=== PATIENT | female | born 1930 | race Caucasian/White ===

== ENCOUNTER 2018-05-28 09:01 | Inpatient (IN) ==
[2018-05-28 09:49] LABS: BASO# 0.02 X1000 (0.0-0.2); BASO% 0.1 % (0.0-0.8); EOS# 0.01 X1000 (0.0-0.7); EOS% 0.1 % (0.0-10.0); HEMATOCRIT 39.7 % (37.0-47.0); HEMOGLOBIN 12.7 g/dL (12.0-16.0); IMM GRAN# 0.02 X1000 (0.0-0.04); IMM GRAN% 0.1 % (0.0-0.5); LYMPH# 6.12 X1000 (1.2-3.4); LYMPH% 41.7 % (20.5-51.1); MCH 30.7 PG (27-31); MCV 95.9 FL (81-99); MONO# 1.05 X1000 (0.11-0.59); MONO% 7.2 % (1.7-9.3); NEUT# 7.45 X1000 (1.4-6.5); NEUT% 50.8 % (42.2-75.2); PLT 303 X1000 (130-400); RBC 4.14 XMIL (4.2-5.4); RDW 14.7 % (11.5-14.5); WBC 14.67 X1000 (4.8-10.8)
[2018-05-28 09:53] LABS: ALBUMIN 3.4 g/dL (3.5-5.0); CALCIUM 9.7 mg/dL (8.8-10.2); CREATININE 0.9 mg/dL (0.5-0.9); INR 0.99; POTASSIUM 4.1 mmol/L (3.5-5.1); PROTIME 13.9 Seconds (11.0-16.0); TOTAL BILIRUBIN 0.52 mg/dL (0.20-1.00); TOTAL PROTEIN 6.8 g/dL (6.3-8.3)
[2018-05-28 09:54] LABS: PTT 34.3 Seconds (22.3-41.8)
--- NOTE | 2018-05-28 09:56 | PROVIDER DOCUMENTATION ---
HPI-General Adult - General Chief Complaint: Possible Sepsis-D Stated Complaint: Fever Time Seen by Provider: 05/28/18 09:19 Source: patient Allergies/Adverse Reactions: Patient Allergies Allergy/AdvReac Type Severity Reaction Status Date / Time No Known Allergies Allergy Verified 05/28/18 09:40 Home Medications: Home Medication List Medication Instructions Recorded Confirmed Last Taken Type Atenolol 100 mg PO DAILY 04/10/13 12/04/14 12/04/14 History Insuln Asp Prt/Aspart [Novolog Mix 12 units SQ QPM 04/10/13 12/04/14 12/03/14 History 70/30] Insuln Asp Prt/Aspart [Novolog Mix 20 units SQ QAM 04/10/13 12/04/14 12/04/14 History 70/30] Omeprazole [Prilosec] 20 mg PO DAILY@0700 04/10/13 12/04/14 12/04/14 History Simvastatin [Zocor] 20 mg PO QHS 04/10/13 12/04/14 12/03/14 History Clopidogrel [Plavix] 75 mg PO DAILY 12/04/14 12/04/14 12/04/14 History Losartan/Hydrochlorothiazide 1 each PO DAILY 12/04/14 12/04/14 12/04/14 History [Losartan-Hctz 50-12.5 mg Tab] Sulindac 200 mg PO DAILY 12/04/14 12/04/14 12/04/14 History Albuterol Sulfate Inhaler 1 puff INH Q6H PRN PRN #1 inhaler 12/06/14 Unknown Rx [Ventolin Hfa] CefDINIR [Omnicef] 300 mg PO BID #14 capsule 12/06/14 Unknown Rx Fluticasone/Salmet 250/50 INH 1 puff INH BID #1 inhaler 12/06/14 Unknown Rx [Advair 250/50 Diskus] Hydrocodone/APAP 7.5 mg/325 mg 0.5 each PO Q4H PRN PRN #14 tablet 12/06/14 Unknown Rx [Brutus-7.5] Polyethylene Glycol 3350 [Miralax] 17 gm PO DAILY #0 powder, packet 12/06/14 Unknown Rx - History of Present Illness -Gen Adult Nature of Presenting Problems: [facility] for [facility]. patient recently treated for UTI and continues on oral antibiotic.Patient notes that she has become weakner over the past few days to the point of dropping objects like a coffee cup. She also notes 1 episode of N//V today. Location of Pain/Injury: reports: none Quality of Pain: reports: none Severity: reports: moderate Onset/Duration: reports: 3 days ago Timing: reports: still present Context/Activities at Onset: reports: none Modifying Factors: improves with: nothing Associated Symptoms: reports: fever/chills, nausea, vomiting, weakness Similar Symptoms Previously?: Yes Recently seen or treated by another doctor?: Yes - Diabetes Related Context Context: reports: high blood sugar - Sickle Cell Pain Related Context Sickle Cell Pain Location: reports: none Review of Systems - Adult - REVIEW OF SYSTEMS - ADULT Constitutional: reports: no symptoms reported Eyes: reports: no symptoms reported Ears, Nose, Mouth & Throat: reports: no symptoms reported Cardiovascular: reports: no symptoms reported Respiratory: reports: no symptoms reported Gastrointestinal: reports: no symptoms reported Genitourinary: reports: no symptoms reported Musculoskeletal: reports: no symptoms reported Integumentary: reports: no symptoms reported Neurological: reports: no symptoms reported Psychiatric: reports: no symptoms reported Endocrine: reports: no symptoms reported Hematologic/Lymphatic: reports: no symptoms reported Allergic/Immunologic: reports: no symptoms reported All Other Systems: Reviewed and Negative Past History - Adult - PAST MEDICAL HISTORY-ADULT Review of Records: reports: Old Records Reviewed, Nursing Assessment Review, Medications Reviewed, Social history reviewed & non-contributory. Major Childhood Illnesses: reports: denies history Cardiovascular: reports: HTN, hyperlipidemia Respiratory: reports: denies history Gastrointestinal: reports: GERD Obstetrical/Gynecological: reports: denies history Genitourinary: reports: denies history Musculoskeletal: reports: denies history Neurological: reports: denies history Endocrine/Immune: reports: denies history, Diabetes Other Conditions: reports: denies history - PRIOR SURGERIES/PROCEDURES Surgical/Procedure History: reports: reviewed, not pertinent - IMMUNIZATION STATUS Childhood Immunizations: See Nurse Assessment Flu Vaccine: See Nurse Assessment - FAMILY HISTORY Family History: reviewed, not pertinent Physical Exam-General - PHYSICAL EXAM-ADULT Initial Vital Signs Reviewed: Yes - CONSTITUTIONAL General Appearance: appears well - EYES Eyes: PERRL/EOMI - HEAD, EARS, NOSE, MOUTH & THROAT HENMT: normocephalic/atraumatic Progress - PLAN OF CARE/RESULTS Progress/Plan/Lab Results: Vital Signs - 8 hr 05/28/18 09:05 Temperature 99.5 F Pulse Rate 97 H Respiratory Rate 22 Blood Pressure 162/74 O2 Sat by Pulse Oximetry 96 Laboratory Results - last 24 hr 05/28/18 09:29 POC Glucose 212 H Orders Category Date Time Status Cardiac Monitoring DIRECTED Care 05/28/18 09:14 Active IV Insertion ORDERED Care 05/28/18 09:14 Active Notify MD of + Sepsis Screen NOW Care 05/28/18 09:14 Active Notify Physician As Ordered Care 05/28/18 09:14 Active CHEST-1 VIEW [RAD] Stat Exams 05/28/18 09:14 Taken BLOOD CULTURE [BLDCUL] Stat Lab 05/28/18 09:31 Received CBC WITH DIFF [HEME] Stat Lab 05/28/18 09:28 Results CK PROFILE [SP CHEM] Stat Lab 05/28/18 09:28 Received COMPREHENSIVE METABOLIC PANEL [CHEM] Stat Lab 05/28/18 09:28 Received LACTATE, PLASMA [CHEM] Q3H Lab 05/28/18 09:28 Received LACTATE, PLASMA [CHEM] Q3H Lab 05/28/18 12:15 Uncollected LACTATE, PLASMA [CHEM] Q3H Lab 05/28/18 15:15 Uncollected PROTIME WITH INR [COAG] Stat Lab 05/28/18 09:28 Received PTT [COAG] Stat Lab 05/28/18 09:28 Received TROPONIN T Stat Lab 05/28/18 09:28 Received URINALYSIS W/POSS RFLX CULT [URINALYSIS] Stat Lab 05/28/18 09:14 Uncollected Oxygen Device Stat Oth 05/28/18 09:14 Active Result Diagrams: 05/28/18 09:28 05/28/18 09:28 - REASSESSMENT Reassessment #1 Time Reassessed: 13:23 Status: unchanged - CONSULTS/PCP/HOSPITALIST Notification #1 *Consult/PCP/Hospitalist*: Dr. Brown Time Discussed: 13:23 Consult Disposition: Admit Departure - Departure Date of Disposition Decision: 05/28/18 Time of Disposition Decision: 13:23 DIAGNOSIS: UTI (urinary tract infection) Disposition: ADMITTED INPATIENT 09 Certified Medical Emergency: Emergent Condition: Stable Referrals and Follow-Ups: John Smith MD [Primary Care Provider] - - Critical Care Note This patient required my direct & personal management of CC.: No Attestation - Physician/ JULIEN Attestation Patient care was provided by Advanced Practice Provider:: No The physician spent face to face time with patient:: Yes Advanced Practice Provider documentation review:: Supervising physician onsite and consulted in the evaluation and care of this patient. The physician did have a face to face encounter with the patient.
[2018-05-28 10:01] LABS: URINE SOURCE CATH
--- NOTE | 2018-05-28 10:06 | Diag Imaging Result Doc PS360 ---
EXAM: CHEST-1 VIEW INDICATION: SEPSIS TECHNIQUE: One view COMPARISON: 12/04/2014 FINDINGS: Inspiration is suboptimal. This is similar to the previous study. There is central vascular crowding related to the low lung volumes. No well-defined consolidation is identified. There is no discrete pleural fluid collection or pneumothorax. The cardiomediastinal silhouette and central vasculature are grossly unremarkable. IMPRESSION: Low lung volumes but no definite acute pathology, otherwise. Electronically signed by Marco Emery 05/28/2018 10:03 AM
[2018-05-28 10:09] LABS: BILIRUBIN URINE NEGATIVE (NEGATIVE); BLOOD URINE NEGATIVE (NEGATIVE); COLOR YELLOW; GLUCOSE URINE NEGATIVE (NEGATIVE); KETONE URINE NEGATIVE (NEGATIVE); LEUKOCYTES URINE TRACE (NEGATIVE); NITRITE URINE NEGATIVE (NEGATIVE); PROTEIN URINE 30 mg/dL (NEGATIVE); SP GRAVITY URINE 1.033; TURBIDITY URINE CLEAR (CLEAR); UROBILINOGEN URINE 2 mg/dL (NORMAL)
[2018-05-28 10:11] LABS: UR EPITHELIAL CELLS <10 /HPF (<10); URINE BACTERIA NEGATIVE /HPF; URINE RBC <10 /HPF (<10); URINE WBC <10 /HPF (<10)
[2018-05-28] MEDS ORDERED: LEVAQUIN 750 MG/D5W 750 MG/150 ML IVPB IV ONE (13:24)
[2018-05-28] MEDS ORDERED: TYLENOL PO PRN (13:45)
[2018-05-28] MEDS ORDERED: ZOFRAN IV PRN (13:45)
--- NOTE | 2018-05-28 14:14 | HISTORY AND PHYSICAL ---
HISTORY: Ms. Henriquez is at [facility] followed by Dr. Mendoza. She apparently has had some dysuria and burning when she passes her water. They have been treating her with p.o. antibiotic for the last couple of days, but this morning was very weak. Apparently, she dropped her coffee. They were concerned about it so they sent her over here. It looks like the only thing we discovered was acute cystitis so we will obtain cultures, and put her on some IV Levaquin. She is an 84-year-old with longstanding history of type 2 diabetes mellitus, hypertension, hyperlipidemia, and gastroesophageal reflux disease. Family follows her a grandson. She was getting Meals on Wheels. At this time though, I think she is in [facility]. Her son was at the bedside. PAST SURGICAL HISTORY: She has had some eye surgery in the past. PAST MEDICAL HISTORY: 1. Diabetes mellitus type 2. 2. Hypertension. 3. Hyperlipidemia. 4. Gastroesophageal reflux disease. 5. Coronary artery disease. ALLERGIES: No known drug allergies. MEDICATIONS: It looks like her medications include: 1. Atenolol 100 mg a day. 2. 70/30 NovoLog 20 units at breakfast and 12 units of supper. 3. Prilosec 20 mg a day. 4. Zocor 20 mg at bedtime. 5. Bumex 1 mg daily. 6. Coumadin 3 mg at bedtime. 7. Hyzaar 50/12.5 daily. 8. Plavix 75 mg a day. 9. Sulindac 200 mg a day. 10. Ativan 0.5 mg at bedtime. 11. Klor-Con 10 mEq daily. REVIEW OF SYSTEMS: She says she was breaking out in a sweat and just very weak, but she did not know of any recorded elevated temperature. She does not report any chest pain or palpitations.HEENT: No change in visual or hearing acuity reported. Neck: No neck pain or stiffness. No cervical adenopathy. Respiratory: No increased work of breathing or dyspnea. No cough. No pleuritic pain. Cardiovascular: Regular rhythm and rate. GI/: No change in her bowels. She does have burning with urination. No blood in the urine reported. Endocrinologic/Hematologic: No significant history that we know of. Musculoskeletal/Neurologic: Just generalized weakness. No focal changes. PHYSICAL EXAMINATION: VITAL SIGNS: Temperature 99.5 degrees, pulse 88, respirations 17, and blood pressure 145/65. Weight 160 pounds, height 5 feet 2 inches, and O2 saturation 92%. HEENT: Pupils are equal and round. LUNGS: Clear in all lung kessler. CARDIOVASCULAR: Regular rhythm and rate without murmur or S3. ABDOMEN: Soft. SKIN: Warm and dry. LABORATORY: White count 01899, hematocrit 39 and platelet count 303,000. Sodium 138, potassium 4.1, chloride 101, BUN 22, and creatinine 0.9. AST 13, ALT 8, alkaline phosphatase 114. Troponin was less than 0.01. ProTime is 13.9, PTT is 34. Urinalysis was really unremarkable. Of course, she has been on p.o. antibiotics but white blood cells less than 10. Red blood cells less than 10. Her chest x-ray with low lung volumes, but no definite acute pathology. ASSESSMENT AND PLAN: 1. Suspect acute cystitis and possible early pyelonephritis. We will get an ultrasound tomorrow of her kidneys and collection system. I will put her on IV Levaquin. 2. Diabetes mellitus type 2. Follow pattern sugars. Continue her home insulin, put on diabetic diet. 3. Leukocytosis. Suspect this is related to urinary tract infection in which case she may have some pyelonephritis, so we will check her ultrasound of her collection system and make sure there is no perinephric abscess or pyelonephritis. She does not complain of costovertebral angle pain. 4. Hypercholesterolemia. 5. History of gastroesophageal reflux disease. 6. I am suspicious that she has had a history of coronary artery disease, and will see if I can find anything on previous H P. cc: Ray Brown MD
[2018-05-28] MEDS: NS 1,000 ML IV SCH (14:19)
[2018-05-28] MEDS: HUMULIN R SUBQ SCH ×2 (17:32→22:11)
[2018-05-28] MEDS: TEARISOL OPH SOLUTION OPH SCH ×2 (17:36→21:11)
[2018-05-28] MEDS: ADVAIR 250/50 DISKUS INH SCH (19:27)
[2018-05-28] MEDS: HUMALOG MIX 75/25 SUBQ SCH (21:11)
[2018-05-28] MEDS: ZANTAC PO SCH (21:11)
[2018-05-28] MEDS: NORCO-7.5 PO SCH (21:11)
[2018-05-28] MEDS ORDERED: TESSALON PO ONE (23:11)
[2018-05-29] MEDS: NS 1,000 ML IV SCH ×2 (03:30→15:53)
[2018-05-29] MEDS: HUMULIN R SUBQ SCH ×4 (05:13→21:56)
[2018-05-29 07:41] LABS: BASO# 0.03 X1000 (0.0-0.2); BASO% 0.4 % (0.0-0.8); EOS# 0.14 X1000 (0.0-0.7); EOS% 1.7 % (0.0-10.0); HEMATOCRIT 39.2 % (37.0-47.0); HEMOGLOBIN 12.2 g/dL (12.0-16.0); IMM GRAN# 0.02 X1000 (0.0-0.04); IMM GRAN% 0.2 % (0.0-0.5); LYMPH# 3.65 X1000 (1.2-3.4); LYMPH% 43.4 % (20.5-51.1); MCH 30.8 PG (27-31); MCHC 31.1 g/dL (33-37); MONO# 0.74 X1000 (0.11-0.59); MONO% 8.8 % (1.7-9.3); MPV 10.2 FL (7.4-10.4); NEUT# 3.83 X1000 (1.4-6.5); NEUT% 45.5 % (42.2-75.2); PLT 283 X1000 (130-400); RBC 3.96 XMIL (4.2-5.4); RDW 14.9 % (11.5-14.5); WBC 8.41 X1000 (4.8-10.8)
[2018-05-29] MEDS: ADVAIR 250/50 DISKUS INH SCH ×2 (07:45→20:11)
[2018-05-29 07:48] LABS: INR 1.07; PROTIME 14.8 Seconds (11.0-16.0)
[2018-05-29 07:49] LABS: PTT 34.2 Seconds (22.3-41.8)
[2018-05-29 08:02] LABS: AGAP 8; ALB/GLOB RATIO 0.8; ALBUMIN 3.1 g/dL (3.5-5.0); ALKALINE PHOSPHATASE 100 U/L (32-104); BUN 15 mg/dL (8-22); CHLORIDE 105 mmol/L (98-107); COSMO 286; CREATININE 0.8 mg/dL (0.5-0.9); ESTIMATED GFR > 60; GLUCOSE 105 mg/dL (70-104); GOT 16 U/L (10-30); GPT 7 U/L (10-36); SODIUM 143 mmol/L (136-145); TCO2 30 mmol/L (25-35); TOTAL BILIRUBIN 0.47 mg/dL (0.20-1.00); TOTAL PROTEIN 6.9 g/dL (6.3-8.3)
[2018-05-29 08:03] LABS: HEMOGLOBIN A1C 6.9 % (4.8-6.0)
[2018-05-29 08:17] LABS: FREE T4 1.34 ng/dL (0.93-1.70); TSH 0.21 uIUmL (0.27-4.20)
--- NOTE | 2018-05-29 08:38 | Diag Imaging Result Doc PS360 ---
EXAM: US RENAL 2 (RETROPER) COMPLETE 05/29/2018 HISTORY: uti TECHNIQUE: Renal ultrasound COMMENT: The urinary bladder is not distended. The right kidney is 10.2 x 5.2 x 4.5 cm the left is 11.7 x 5.1 x 4.7 cm. There is no evidence of hydronephrosis. There is an apparent cyst measuring 1.4 cm in the mid right kidney. There are no previous ultrasound examinations. IMPRESSION: No evidence of acute disease. Electronically signed by Jagdish Tolentino 05/29/2018 8:36 AM
[2018-05-29] MEDS ORDERED: INSULIN PEN NEEDLES ONE (09:11)
[2018-05-29] MEDS: MIRALAX PO SCH (09:22)
[2018-05-29] MEDS: ZANTAC PO SCH ×2 (09:22→21:56)
[2018-05-29] MEDS: THERA M PLUS PO SCH (09:22)
[2018-05-29] MEDS: HUMALOG MIX 75/25 SUBQ SCH ×2 (09:22→21:57)
[2018-05-29] MEDS: PLAVIX PO SCH (09:22)
[2018-05-29] MEDS: JANUVIA PO SCH (09:22)
[2018-05-29] MEDS: TOPROL XL PO SCH (09:22)
[2018-05-29] MEDS: TEARISOL OPH SOLUTION OPH SCH ×4 (09:23→21:57)
[2018-05-29] MEDS ORDERED: LEVAQUIN 750 MG/D5W 750 MG/150 ML IVPB IV SCH (15:00)
[2018-05-29] MEDS ORDERED: MILK OF MAGNESIA PO PRN (16:44)
--- NOTE | 2018-05-29 17:05 | PROGRESS NOTE ---
DATE: 05/29/2018 SUBJECTIVE: Ms. Henriquez is actually feeling much better, comfortable. She has not had any fever, no chills. She does still feel weak, but much improved. OBJECTIVE: Vital signs: Temperature 98.2 degrees, pulse 86, respirations 20, blood pressure 150/63. HEENT: Pupils are equal and round. Lungs: Clear in all lung kessler. Cardiovascular: Regular rhythm and rate without murmur or S3. Abdomen: Soft. Skin: Warm and dry. DIAGNOSTIC STUDIES: She had a renal ultrasound with no evidence of acute disease and no evidence of hydronephrosis. ASSESSMENT AND PLAN: 1. Acute cystitis and possible pyelonephritis. Doing much better. Presented with an elevated white count and failure of p.o. antibiotics in the correction. 2. Volume depletion. This is improved. Her creatinine is good at 0.8. 3. History of gastroesophageal reflux. 4. History of hypercholesterolemia. We need to try and get her up, and she does have Physical Therapy involved. Continue her levofloxacin 750 mg IV q.24 h. There is no growth in the urine. Blood cultures x2 were negative so hopefully we can improve, and maybe she can get back to the correction on Tuesday. cc: Ray Brown MD
[2018-05-29] MEDS: TESSALON PO PRN ×2 (19:32→23:39)
[2018-05-29] MEDS: NORCO-7.5 PO SCH (21:56)
[2018-05-30] MEDS: HUMULIN R SUBQ SCH ×4 (05:59→20:48)
[2018-05-30] MEDS: NS 1,000 ML IV SCH (05:59)
[2018-05-30 07:29] LABS: MPV 10.6 FL (7.4-10.4); RDW 14.9 % (11.5-14.5)
[2018-05-30 07:40] LABS: HEMATOCRIT 38.9 % (37.0-47.0); HEMOGLOBIN 12.7 g/dL (12.0-16.0); MCH 31.9 PG (27-31); MCHC 32.6 g/dL (33-37); MCV 97.7 FL (81-99); RBC 3.98 XMIL (4.2-5.4); WBC 9.21 X1000 (4.8-10.8)
[2018-05-30 08:42] LABS: AGAP 9; BUN 12 mg/dL (8-22); CHLORIDE 105 mmol/L (98-107); COSMO 279; CREATININE 0.6 mg/dL (0.5-0.9); ESTIMATED GFR > 60; GLUCOSE 58 mg/dL (70-104); SODIUM 141 mmol/L (136-145); TCO2 27 mmol/L (25-35)
[2018-05-30] MEDS: ADVAIR 250/50 DISKUS INH SCH ×2 (09:40→22:40)
[2018-05-30] MEDS: THERA M PLUS PO SCH (11:52)
[2018-05-30] MEDS: JANUVIA PO SCH (11:52)
[2018-05-30] MEDS: PLAVIX PO SCH (11:52)
[2018-05-30] MEDS: TOPROL XL PO SCH (11:52)
[2018-05-30] MEDS: TEARISOL OPH SOLUTION OPH SCH ×4 (11:53→20:46)
[2018-05-30] MEDS: ZANTAC PO SCH ×2 (11:53→20:47)
[2018-05-30] MEDS: MIRALAX PO SCH ×2 (11:53→20:47)
[2018-05-30] MEDS: HUMALOG MIX 75/25 SUBQ SCH ×2 (11:53→20:46)
--- NOTE | 2018-05-30 14:14 | Diag Imaging Result Doc PS360 ---
CT THORAX W/O CONTRAST - 05/30/2018 INDICATION: pneumonia COMPARISON: Chest x-ray 05/28/2018. CT 04/09/2013. FINDINGS: There is a stable severely abnormal thyroid gland with enlargement of the right lobe. This measures 4 x 3.1 cm in AP and lateral dimensions. This is very similar to the CT from 2013. Stable abnormal right clavicle compatible with Paget's disease. There is significant cardiomegaly. There is vascular disease of the great vessels but otherwise these are grossly normal. There is a left adrenal gland nodule measuring 2.1 cm. There is probably also a tiny right adrenal gland nodule. There is probably a small calcified gallstone in the gallbladder neck. No gallbladder distention or inflammation. There is some faint patchy atelectasis in the lung bases bilaterally. No substantial infiltrates. IMPRESSION: 1. Patchy atelectasis in the lung bases but no pneumonia. 2. Abnormally enlarged right lobe of the thyroid gland stable from old exams. 3. Paget's disease of the right clavicle with no evidence of complication. This exam was performed using automated exposure control, adjustment of mA or kV according to patient size, and/or use of iterative reconstruction technique Electronically signed by Raman Corea 05/30/2018 2:12 PM
[2018-05-30] MEDS: MUCOMYST 20% INH SCH ×2 (15:10→22:40)
[2018-05-30] MEDS: ALBUTEROL NEB INH SCH ×3 (15:10→22:40)
[2018-05-30] MEDS: AUGMENTIN PO SCH (20:45)
[2018-05-30] MEDS: NORCO-7.5 PO SCH (20:46)
[2018-05-30] MEDS: LACTULOSE PO SCH (20:47)
[2018-05-30] MEDS: CULTURELLE PO SCH (20:47)
[2018-05-31] MEDS: ALBUTEROL NEB INH SCH ×4 (03:05→21:53)
--- NOTE | 2018-05-31 03:59 | PROGRESS NOTE ---
DATE: 05/30/2018 SUBJECTIVE: The patient states that she has been coughing a lot, and she has not had a bowel movement in several days. OBJECTIVE: Vital Signs: Temperature 98.3 degrees, blood pressure 174/64, heart rate 93, respirations 20, O2 saturation 99% on 2 L nasal cannula. Output: Urine output 1.1. General: This is a chronically ill-appearing elderly female, lying in bed, in no acute distress. Heart: S1, S2 normal. Lungs: Coarse breath sounds bilaterally with rhonchi. Abdomen: Positive bowel sounds. Soft, nontender, nondistended. Extremities: No edema, no cyanosis. Neurologic: The patient is alert and oriented. DIAGNOSTIC STUDIES: White blood cell count 9.2, hemoglobin 12, hematocrit 38, platelets 173,000. Sodium 141, potassium 4, chloride 105, CO2 of 27, BUN 12, creatinine 0.6, glucose 182. CT of the chest reveals atelectasis. An enlarged right lobe of the thyroid gland, stable. ASSESSMENT AND PLAN: 1. Acute bronchitis. We will continue with antibiotics and add bronchodilator therapy. 2. Urinary tract infection. The urine culture showed no growth. We will continue the course of antibiotic therapy. 3. Constipation. We will start the patient on scheduled laxative therapy. 4. Diabetes mellitus. Continue on Humalog mix plus sliding scale insulin. 5. Deep vein thrombosis prophylaxis. We will start the patient on Lovenox. 6. We will consult Physical Therapy. cc: Phoebe Reaves MD
[2018-05-31] MEDS: HUMULIN R SUBQ SCH ×4 (06:21→21:19)
[2018-05-31 07:10] LABS: HEMATOCRIT 38.6 % (37.0-47.0); HEMOGLOBIN 12.6 g/dL (12.0-16.0); MCH 31.3 PG (27-31); MCHC 32.6 g/dL (33-37); MPV 9.9 FL (7.4-10.4); RBC 4.02 XMIL (4.2-5.4); RDW 14.7 % (11.5-14.5); WBC 6.1 X1000 (4.8-10.8)
[2018-05-31 07:30] LABS: AGAP 9; BUN 11 mg/dL (8-22); CALCIUM 9.4 mg/dL (8.8-10.2); CHLORIDE 107 mmol/L (98-107); COSMO 283; CREATININE 0.6 mg/dL (0.5-0.9); ESTIMATED GFR > 60; GLUCOSE 43 mg/dL (70-104); MAGNESIUM 1.9 mg/dL (1.5-2.7); PHOSPHORUS 3.3 mg/dL (2.7-4.5); POTASSIUM 3.7 mmol/L (3.5-5.1); SODIUM 144 mmol/L (136-145); TCO2 28 mmol/L (25-35)
[2018-05-31] MEDS ORDERED: DULCOLAX PR SCH (09:00)
--- NOTE | 2018-05-31 09:09 | Diag Imaging Result Doc PS360 ---
EXAM: ABDOMEN FLAT/UPRIGHT HISTORY: constipation TECHNIQUE: Portable flat and upright, two views COMPARISON: None. FINDINGS: No free air beneath the diaphragm. There is stool throughout the colon. No bowel obstruction. No organomegaly. Mild scoliosis with degenerative changes. Moderate atherosclerosis. There are calcified uterine fibroids and pelvic phleboliths. IMPRESSION: [id number] constipation. Electronically signed by Manjit Fernandez 05/31/2018 9:07 AM
[2018-05-31] MEDS: PLAVIX PO SCH (09:22)
[2018-05-31] MEDS: LACTULOSE PO SCH (09:22)
[2018-05-31] MEDS: ZANTAC PO SCH ×2 (09:22→21:09)
[2018-05-31] MEDS: CULTURELLE PO SCH ×2 (09:22→21:09)
[2018-05-31] MEDS: AUGMENTIN PO SCH ×2 (09:22→21:09)
[2018-05-31] MEDS: MIRALAX PO SCH (09:23)
[2018-05-31] MEDS: LOVENOX SUBQ SCH (09:23)
[2018-05-31] MEDS: TOPROL XL PO SCH (09:23)
[2018-05-31] MEDS: JANUVIA PO SCH (09:23)
[2018-05-31] MEDS: THERA M PLUS PO SCH (09:23)
[2018-05-31] MEDS: TEARISOL OPH SOLUTION OPH SCH ×4 (09:23→21:08)
[2018-05-31] MEDS: HUMALOG MIX 75/25 SUBQ SCH (09:32)
[2018-05-31] MEDS: MUCOMYST 20% INH SCH ×2 (09:54→21:53)
[2018-05-31] MEDS: ADVAIR 250/50 DISKUS INH SCH ×2 (09:54→21:53)
--- NOTE | 2018-05-31 15:23 | PROGRESS NOTE ---
DATE: 05/31/2018 SUBJECTIVE: The patient is resting comfortably in bed. She states that she is starting to feel a little bit better. She has had several bowel movements today. OBJECTIVE: Vital Signs: Temperature 98.7 degrees, blood pressure 164/74, heart rate 101, respirations 18, and O2 saturation 98% on 2 L nasal cannula. General: This is a chronically ill- appearing elderly female, lying in bed, in no acute distress. Heart: S1 and S2 normal. Regular rate and rhythm. Lungs: Equal air entry bilaterally. No wheezing. No rales. Abdomen: Positive bowel sounds. Soft, nontender, nondistended. Extremities: No edema, no cyanosis. Neurologic: The patient is alert and oriented. LABS: Reviewed. ASSESSMENT AND PLAN: 1. Acute bronchitis. Continue on Augmentin. 2. Diabetes mellitus type 2 with hypoglycemia. We will adjust the patient's insulin regimen. 3. Urinary tract infection. The patient is on antibiotic therapy. 4. Constipation. Resolved. 5. Deep vein thrombosis prophylaxis. Continue on Lovenox. 6. Disposition. We will plan to discharge the patient to [facility] tomorrow. cc: Phoebe Reaves MD
[2018-05-31] MEDS: NORCO-7.5 PO SCH (21:09)
[2018-06-01] MEDS: ALBUTEROL NEB INH SCH ×2 (03:45→08:10)
[2018-06-01] MEDS: HUMULIN R SUBQ SCH ×2 (06:31→11:20)
[2018-06-01 07:32] LABS: HEMATOCRIT 37.7 % (37.0-47.0); HEMOGLOBIN 12.3 g/dL (12.0-16.0); MCH 31.5 PG (27-31); MCHC 32.6 g/dL (33-37); MCV 96.4 FL (81-99); RBC 3.91 XMIL (4.2-5.4); RDW 14.7 % (11.5-14.5); WBC 5.53 X1000 (4.8-10.8)
[2018-06-01] MEDS: ADVAIR 250/50 DISKUS INH SCH (08:10)
[2018-06-01] MEDS: MUCOMYST 20% INH SCH (08:10)
[2018-06-01 08:22] LABS: AGAP 10; BUN 11 mg/dL (8-22); CALCIUM 8.2 mg/dL (8.8-10.2); CHLORIDE 102 mmol/L (98-107); COSMO 279; CREATININE 0.6 mg/dL (0.5-0.9); ESTIMATED GFR > 60; GLUCOSE 194 mg/dL (70-104); SODIUM 137 mmol/L (136-145); TCO2 25 mmol/L (25-35)
[2018-06-01] MEDS ORDERED: TOPROL XL PO SCH (09:00)
[2018-06-01] MEDS: PLAVIX PO SCH (09:13)
[2018-06-01] MEDS: TEARISOL OPH SOLUTION OPH SCH ×2 (09:13→13:32)
[2018-06-01] MEDS: JANUVIA PO SCH (09:13)
[2018-06-01] MEDS: THERA M PLUS PO SCH (09:13)
[2018-06-01] MEDS: CULTURELLE PO SCH (09:13)
[2018-06-01] MEDS: LOVENOX SUBQ SCH (09:13)
[2018-06-01] MEDS: ZANTAC PO SCH (09:13)
[2018-06-01] MEDS: AUGMENTIN PO SCH (09:13)
[2018-06-01 11:25] VITALS: BP 152/75
--- NOTE | 2018-06-01 12:56 | DISCHARGE SUMMARY ---
ADMISSION DATE: 05/28/2018 DISCHARGE DATE: 06/01/2018 FINAL DISCHARGE DIAGNOSES: 1. Acute bronchitis. 2. Urinary tract infection. 3. Constipation. 4. Diabetes mellitus type 2. 5. Hypertension. 6. Chronic constipation. 7. Chronic obstructive pulmonary disease. HOSPITAL COURSE: Ms. Henriquez is an 87-year-old female with a history of multiple medical problems who initially was sent from [facility] with the chief complaint of dysuria and pyuria. Upon arrival to the ER, a urinalysis was done that revealed trace leukocytes but negative bacteria. The patient was admitted with the diagnosis of a urinary tract infection and started on antibiotic therapy. Upon further assessment, the patient was also noted to be suffering from acute bronchitis. The patient was started on bronchodilator therapy as well as supplemental oxygen. Over the course of the hospitalization, the patient's respiratory status improved as well as her urinary complaints. The patient was seen by physical therapy. The patient's laxatives were also adjusted and she was noted to be having regular bowel movements. On the day of discharge, the patient was noted to have a white blood cell count of 5.5 with a hemoglobin of 12 and hematocrit of 37. DISCHARGE MEDICATIONS: 1. Augmentin 875 1 tablet oral every 12 hours x5 days. 2. Culturelle 1 tablet oral daily. 3. MiraLAX 17 g p.o. twice a day. 4. Albuterol 2.5 mg inhaled every 6 hours p.r.n. 5. Norvasc 5 mg p.o. twice a day. 6. Plavix 75 mg p.o. daily. 7. Metoprolol succinate 25 mg p.o. daily. 8. Multivitamin with folic acid 1 tablet oral daily. 9. Januvia 100 mg p.o. daily. 10. Advair 250/50 one puff inhaled twice a day. 11. Zantac 150 mg p.o. twice a day. 12. [place] 7.5 mg/325 half a tablet at bedtime. 13. Humalog mix 75/25 with 12 units subcutaneous twice a day. DISCHARGE DIET: An 1800, ADA diet. ACTIVITY: As tolerated. FOLLOWUP INSTRUCTIONS: The patient will need to follow up with her primary care physician in 1 week. cc: Phoebe Reaves MD
== END 2018-06-01 14:58 | DRG 872 ==
LOC: SUPCPDRO → ED 09:01 → 3N 14:53 → SUATTDRO 14:53
PROVIDERS: ATTEND Internal Medicine
CPT/HCPCS: 71010; 71045; 71250; 74019; 74020; 76770; 80048; 80053; 81001; 82550; 82607; 82746; 82948; 83036; 83605; 83735; 84100; 84439; 84443; 84484; 85025; 85027; 85610; 85730; 87040; 87070; 87088; 87205; 94640; 94761; 94799; 96365; 97110; 97116; 97162; 97165; 97530; 99285; A9270; J1650; J1815; J1956; J7030; XXXXX